=== PATIENT | male | born 1970 | race Two or more races ===

== ENCOUNTER 2023-03-20 19:26 | Emergency (ER) | payer OTHER ==
[~2023-03-20] VITALS: Ht 190.5 cm; Wt 95.3 kg
[~2023-03-20 19:26] MED LIST: SYNTHROID200 MCG
[2023-03-20] MEDS ORDERED: SYNTHROID200 MCG PO (19:56)
== END 2023-03-20 23:55 | disposition home or self-care (01) ==
LOC: ER 19:26
DX: N53.12 Painful ejaculation (principal); L72.0 Epidermal cyst

== ENCOUNTER 2023-08-03 11:38 | Emergency (ER) | payer OTHER ==
[~2023-08-03] VITALS: Ht 188 cm; Wt 85.3 kg
[~2023-08-03 11:38] MED LIST changes: +SYNTHROID200 MCG PO
== END 2023-08-03 19:52 | disposition home or self-care (01) ==
LOC: ER 11:38
DX: K59.00 Constipation, unspecified (principal)